=== PATIENT | female | born 1995 | race Caucasian/White ===

== ENCOUNTER 2019-07-01 13:02 | Emergency (ER) | payer OTHER ==
[~2019-07-01] VITALS: Ht 170.2 cm; Wt 113.4 kg
[2019-07-01] MEDS ORDERED: CELECOXIB200 MG PO (13:32)
[2019-07-01] MEDS ORDERED: METHOCARBAMOL500 MG PO (13:32)
[2019-07-01] MEDS ORDERED: LIDOCAINE15 GM (13:33)
[2019-07-01] MEDS ORDERED: ULTRAM50 MG PO (13:34)
[2019-07-01] MEDS ORDERED: NORCO 5-325 TA1 EACH PO (16:21)
[2019-07-01] MEDS ORDERED: CEFUROXIME250 MG PO (16:29)
== END 2019-07-01 17:35 | disposition home or self-care (01) ==
LOC: ED 13:02
DX: N80.9 Endometriosis, unspecified (principal); N39.0 Urinary tract infection, site not specified; Z88.0 Allergy status to penicillin; Z88.8 Allergy status to other drugs, medicaments and biological substances; Z79.899 Other long term (current) drug therapy
CPT/HCPCS: 76830; 76856; 80053; 81001; 84703; 85025; 99284-25; J0696; J1170; J2405

== ENCOUNTER 2019-07-19 05:42 | Day surgery (SDC) | payer OTHER ==
[~2019-07-19] VITALS: Ht 172.7 cm; Wt 113.4 kg
--- NOTE | ~2019-07-19 | OR ---
[facility] [address], [place] [address] Draft DATE OF OPERATION: 07/19/2019 SURGEON: Bessy Mosqueda DO PREOPERATIVE DIAGNOSES: 1. Chronic pelvic pain. 2. Endometriosis was determined by laparoscopy. 3. Complex right ovarian mass suspicious for endometrioma. 4. Dysmenorrhea. 5. History of left tubal occlusion. POSTOPERATIVE DIAGNOSES: 1. Chronic pelvic pain. 2. Right complex ovarian mass. 3. Dysmenorrhea. 4. Endometrial thickening. 5. Patent fallopian tubes bilaterally. 6. No evidence of residual endometriosis. PROCEDURES PERFORMED: 1. Laparoscopic right oophorectomy. 2. Hysteroscopy. 3. Dilation and curettage. 4. Chromopertubation. QUILLER HAND: Chalo Ortiz MD ANESTHESIA: General. ESTIMATED BLOOD LOSS: 50 mL. SPECIMEN: 1. Endometrial curettings. 2. Right ovary and cyst with cyst fluid. FINDINGS: Normal external genitalia, vagina, and cervix. On hysteroscopy, somewhat thickened PATIENT NAME: NANI ROSS OPERATIVE REPORT DATE OF : [birth year] REPORT #: [id number] PHYSICIAN: BESSY MOSQUEDA DO PCP: JULIANNE MARTINEZ MD REPORT IS CONFIDENTIAL AND NOT TO BE RELEASED WITHOUT AUTHORIZATION [facility] [address], [place] [address] Draft endometrium, but no polyps or fibroids. Normal tubal ostia bilaterally. On laparoscopy, normal uterus and bilateral tubes. Patent bilateral fallopian tubes noted on chromopertubation. Large right ovarian mass that was complex on ultrasound. Oophorectomy was performed and at time of removal of the ovary from the abdomen, straw-colored cyst fluid was noted. No evidence of residual endometriosis noted on detailed laparoscopy including sites previously documented in her operative in [place] including the right abdomen near the appendix. COMPLICATIONS: None. INDICATIONS: Ms. Ross is a pleasant 23-year-old G0 white female, who presents for evaluation of history of endometriosis and continued pelvic pain. She had laparoscopy performed several years ago in [place] that demonstrated somewhat extensive endometriosis including the pelvic peritoneum and near the appendix on the peritoneum. An ultrasound was performed that demonstrated a large complex right ovarian mass consistent with either resolving hemorrhagic cyst or endometrioma. Endometrial thickening was also noted on her ultrasound. At her prior surgery in [place], a right tubal ostia was noted on hysteroscopy and left tubal ostia was documented as absent. The right fallopian tube was patent on chromopertubation and the left fallopian tube was reportedly blocked. Decision was made to proceed with laparoscopic excision of endometriosis of present, possible right oophorectomy versus cystectomy, chromopertubation, and hysteroscopy, D and C. Risks, benefits, and alternatives were discussed in detail with the patient. The patient understands and wished to proceed with the procedure. TECHNIQUE: The patient was taken to the operating room. A time-out was performed to confirm correct patient, correct procedure. General anesthesia was adequately established. The patient was prepped and draped in dorsal lithotomy position with feet in Yellofin stirrups. ICPs were on and running and no preop heparin was indicated. The patient did receive 2 g of Ancef preoperatively. A Pop catheter was inserted and a weighted speculum was placed in the vagina and the anterior lip of the cervix was grasped with an Allis clamp. The cervix was gently dilated using Hegar dilators and operative hysteroscope was then placed into the cervical os and advanced under direct visualization into the uterine cavity. Normal uterine cavity with a somewhat thickened endometrium was noted. No polyps, fibroids, or other intrauterine pathology identified. Bilateral tubal ostia were identified. The hysteroscope was withdrawn and simple gentle curettage was performed with a sharp curette. An Riverlea uterine manipulator was then placed. The surgeon's gloves were changed. Attention was turned to the abdomen. The base of the umbilicus was infiltrated with 0.25% Marcaine with epinephrine. A 5 cm PATIENT NAME: NANI ROSS OPERATIVE REPORT DATE OF : [birth year] REPORT #: [id number] PHYSICIAN: BESSY MOSQUEDA DO PCP: JULIANNE MARTINEZ MD REPORT IS CONFIDENTIAL AND NOT TO BE RELEASED WITHOUT AUTHORIZATION [facility] [address] [place] [id number] Draft umbilical incision was made and the fascia was grasped with hemostats, elevated and incised sharply using Metzenbaum scissors. Some brisk bleeding from a subcu vessel was noted and this was made hemostatic with Bovie electrocautery. Stay sutures were applied to the anterior and posterior edges of the fascial incision and the peritoneum was entered bluntly. No intraabdominal adhesions were palpated in the marcy-incisional area and S-retractor was then placed. A Destiney port was placed and pneumoperitoneum established. Assist ports were placed in the left and right lower quadrant under direct visualization without difficulty. These were 5 mm assist ports. Survey of the abdomen and pelvis was performed that demonstrated normal liver and diaphragm. The peritoneum in the area of the appendix was evaluated in detail and no endometriosis was noted. Attention was then turned to the pelvis. Chromopertubation was performed that demonstrated easy bilateral spill from both fallopian tubes. The fallopian tubes appeared normal. Both with very small paratubal cysts, but were otherwise benign. The left ovary was completely normal. The right was enlarged and stretched across a cyst that was reportedly complex on pelvic ultrasound. Given the patient's multiple ER visits and severe symptoms, decision was made to proceed with right oophorectomy as previously discussed. The right infundibulopelvic ligament was evaluated and noted to be well away from the ureter. This was fulgurated and divided right at the entry to the ovary. The remainder of the ovarian attachment to the pelvic sidewall was fulgurated and divided and the ovary was freed. Again, the right fallopian tube appeared normal. A 5 EndoCatch bag was then placed through the umbilical incision and the ovary captured in the bag and brought to the umbilicus for removal. Contained in the bag. A 16-gauge needle was placed into the ovarian cyst and the cyst was aspirated for straw-colored cyst fluid and the ovary was then deflated and removed through the umbilical incision. Laparoscopy was then continued with detailed survey of the pelvic peritoneum that showed no residual endometriosis in the cul-de-sac, bilateral ovarian fossa, bladder, or other pelvic peritoneum. Pneumoperitoneum was then reduced. After insuring that the right infundibulopelvic ligament pedicle was hemostatic. The trocars were removed and periumbilical fascia was then reapproximated using 0 Vicryl in a running nonlocked manner. Subcu was again noted to be hemostatic. Skin was then reapproximated using 4-0 Vicryl in a subcuticular stitch. The Riverlea uterine manipulator removed. The patient was then taken to PACU in good and stable condition. Sponge, needle, instrument count was correct x2 at the end of the procedure. Dr. Ortiz was present and participated in all portions of the procedure. Bessy Mosqueda, DO PATIENT NAME: NANI ROSS OPERATIVE REPORT DATE OF : [birth year] REPORT #: [id number] PHYSICIAN: BESSY MOSQUEDA DO PCP: JULIANNE MARTINEZ MD REPORT IS CONFIDENTIAL AND NOT TO BE RELEASED WITHOUT AUTHORIZATION [address] [address] Draft JPAULA/NIDHIL /[id number] Copies: ~ PATIENT NAME: NANI ROSS OPERATIVE REPORT DATE OF : [birth year] REPORT #: [id number] PHYSICIAN: BESSY MOSQUEDA DO PCP: JULIANNE MARTINEZ MD REPORT IS CONFIDENTIAL AND NOT TO BE RELEASED WITHOUT AUTHORIZATION
[~2019-07-19 05:42] MED LIST: CEFUROXIME250 MG PO; CELECOXIB200 MG PO; LIDOCAINE15 GM; METHOCARBAMOL500 MG PO; NORCO 5-325 TA1 EACH PO; ULTRAM50 MG PO
--- NOTE | 2019-07-19 10:02 | NUR ---
07/19/19 Lizeth Hdz 0948-PT ARRIVES TO PACU ON 6 L VIA MASK. PT REACTIVE TO VERBAL STIMULUS. PT DENIES PAIN/NAUSEA. SURGICAL SITES WNL. FUNERAL HOME ATTENDANT AT BEDSIDE. VSS. SATS >90%. [id number]. PT REPORTS PAIN IN ABD AND SAYS SHE IS "SORE" PT ASKING FOR PAIN MEDICATION. DSICUSSED OXYGENA ND PAIN MEDICATION CRITERIA. PT AGREEABLE. VSS
--- NOTE | 2019-07-19 10:42 | NUR ---
PT ARRIVES TO DS RM 3 FROM PACU DROWSY, EASY TO AROUSE WITH VERBAL STIMULATION. PT RATES PAIN IN ABD 9/10 AND DESCRIBES IT A SORE, BURNING, ACHE. PT DENIES ANY NAUSEA, TOLERATES ICED WATER AND CRACKERS WELL. SCD'S IN PLACE, CALL LIGHT IN REACH.
--- NOTE | 2019-07-19 10:51 | NUR ---
NO ORDERS INPUT FOR PT, DR. MARTINEZ NOTIFIED. PT MOTHER IN ROOM AT THIS TIME.
--- NOTE | 2019-07-19 11:05 | NUR ---
PT RESTING IN BED, CONT TO C/O 10/10 PAIN IN ABD. PT PROVIDED MORE CRACKERS AND ICED WATER REFILLED. WARM BLANKET PROVIDED PER REQUEST. MOTHER AT BEDSIDE, CALL LIGHT IN REACH.
--- NOTE | 2019-07-19 12:18 | NUR ---
1215 C/O PAIN AT 9/10 BUT HEAD TIPPED BACK MOUTH OPEN EYES CLOSED RESP EVEN.DOESNT EXHIBIT ANY MOVEMENT FROWNING OR MOANING SUGGESTIVE OF THIS LEVEL OF PAIN. DR MARTINEZ HERE FOR UPDATE ON PT.
--- NOTE | 2019-07-19 14:02 | NUR ---
PT USES CALL LIGHT TO NOTIFY RN OF URGE TO VOID. PT SAT AT SIDE OF BED PRIOR TO STANDING, DENIES DIZZINESS OR NAUSEA. PT AMBULATES WITH RN ASSIST TO BATHROOM USING HANDRAIL ALONG HALLWAY, STEADY GAIT. PT PROVIDED NEW PERIPAD DUE TO PERIPAD FALLING ON FLOOR. PT UNABLE TO VOID AT THIS TIME, RED BLOOD PRESENT. PT BACK TO RM, SCD'S IN PLACE. PT MOTHER AT BEDSIDE, CALL LIGHT WITHIN REACH. LUNCH ORDERED FOR PT, CRACKERS PROVIDED AND ICED WATER FILLED. WARM BLANKETS PROVIDED.
--- NOTE | 2019-07-19 14:39 | NUR ---
PT LUNCH DELIVERED FROM DIETARY. PT RESTING IN BED WITH EVEN AND UNLABORED RESP, SITTING UPRIGHT EATING LUNCH. PT APPEARS COMFORTABLE. CALL LIGHT WITHIN REACH.
[2019-07-19] MEDS ORDERED: IBUPROFEN800 MG PO (15:01)
[2019-07-19] MEDS ORDERED: PERCOCET 5-3251 EACH PO (15:01)
--- NOTE | 2019-07-19 15:27 | NUR ---
PT UP TO BATHROOM WITH RN ASSIST, STEADY GAIT. PT UNABLE TO VOID AT THIS TIME. PT BACK TO RM, RATES PAIN IN ABD; MEDICATED PER EMAR. SCD'S IN PLACE, ICED WATER REFILLED.
--- NOTE | 2019-07-19 15:40 | NUR ---
PT BLADDER SCANNED OF APPROX [address] MARTINEZ NOTIFIED, VERBAL ORDERS TO PLACE NAVARRO CATHETER AND TO KEEP PT OVERNIGHT FOR EXTENDED OBSERVATION. THIS RN PLACES NAVARRO CATHETER WITH ASSIST OF 2 OTHER RNS. UROJET USED FOR PT COMFORT. APPROX 9 MLS STERILE WATER INSERTED IN NAVARRO CATHETER BALLOON. PT TOLERATES NAVARRO PLACEMENT WITH MINIMAL PAIN. 1000 MLS YELLOW URINE EMPTIED FROM PT BLADDER.
--- NOTE | 2019-07-19 17:19 | NUR ---
PT RESTING IN BED WITH MOTHER AT BEDSIDE. PT RATES PAIN 6/10 IN ABD AND TOLERABLE. PT ICED WATER REFILLED, TOLERATES PO WELL. PLAN TO TRANSFER PT TO MS RM 116.
--- NOTE | 2019-07-19 17:47 | NUR ---
1740: PT TRANSFERRED TO RM 116 VIA STRETCHER. PT ABLE TO TRANSFER SELF FROM STRETCHER TO BED. MOTHER, LEIGH ANN FOLLOWS TO PT RM. VERBAL REPORT GIVEN TO MARCELO LIM.
--- NOTE | 2019-07-19 17:52 | NUR ---
PATIENT ARRIVED FROM DAY SURGERY, REPORT RECIEVED FROM RN. PATIENT MOVED SELF OVER TO BED FROM [facility]. MESH UNDERWEAR AND PERIPAD IN PLACE. NAVARRO CATHETER INTACT AND DRAINING CLEAR YELLOW URINE. PATIENT RATES ABD PAIN 6/10 AND THAT IS THE BEST ITS BEEN SINCE SURGERY. X3 ABD SCOPE SITES INTACT AND COVERED WITH BANDAIDS, LEFT ABD SITE HAS OLD DRAINAGE. PATIENT IS EATING CRACKERS, JELLO, SIPS OF WATER. WARM BLANKETS PROVIDED.
--- NOTE | 2019-07-19 18:39 | NUR ---
PATIENT GIVEN ONE PERCOCET FOR 8/10 ABD PAIN. PATIENT IS TOLERATING PO INTAKE.
--- NOTE | 2019-07-19 20:33 | NUR ---
awake, on room air. c/o 11/29 abd pain medicated with 1 norco po. coop with assessment. vag pack inplace, f/c patent, draining large amounts of clear yellow urine
--- NOTE | 2019-07-19 21:08 | NUR ---
PT GOT MYLICON, THEN SHE STATED THAT SHE HAD MINT ALLERGIES, MYLICON INFORMATION DOWNLOADED, STATED INACTIVE MINT FLAVORING. C/O SOB. ON ROOM AIR, SATS 97% ID PULSE OX. RESP 16, P70. NO RASH OR OTHER SIMPTOMS NOTED. DR MARTINEZ NOTIFIED VIA PHONE. NEW ORDERES RECEIVED TO DC MYLICON AND NEW ORDERS FOR BENADRYL 25MG PO OBTAINED.
--- NOTE | 2019-07-19 21:18 | NUR ---
medicated with benadryl
--- NOTE | 2019-07-20 04:06 | NUR ---
PT WAS SLEEPING SOUNDLY, ON ROOM AIR, AWAKES EASILY, NO FURTHER C/O FEELING SOB OR PAIN AT THIS TIME. VAGINAL PACK STILL IN PLACE, VERY SCANT AMOUNT OF BROWNINGSH AND PINKSISH COLORED VAG DRAINAGE. F/C PATENT.TOLERATING FLUIDS WELL, CALL LIGHT AT BEDSIDE, SCDS IN PLACE, NO C/O N/V
--- NOTE | 2019-07-20 05:50 | NUR ---
Walked with pt one lap, provided pt with warm blanket.
--- NOTE | 2019-07-20 06:06 | NUR ---
PT CURRENTLY WALKING HALLWAYS, UP AND DOWN, TOLERATED WELL. BACKA TO ROOM. SBA. ON ROOM AIR, RECEIVED SCHEDULED MOTRIN PO PER 11/29 ABD/VAGINAL PAIN. VAGINAL PACK STILL IN PLACE, SCANT AMOUNT OF VAGINAL DISCHARGE PRESENT. F/C PATENT, DRAINING DARK YELLOW URINE. hAS BEEN MEDICATED WITH nORCO X1. pT PT C/O MINT ALLERGY THANT SHE FORGOT NOTNOTIFY MD OR HOSP PERSONNEL AFTER TAKING MYLICON, DR MARTINEZ NOTIFIED, PT RECEIVED BENADRYL, NO C/O ITCHING OR OTHER SIDE EFFECTS. NO N/V. ALERT AND ORIENTED
--- NOTE | 2019-07-20 08:47 | NUR ---
DR MARTINEZ CAME BY NURSES STATION. VERBAL ORDERS GIVEN: PULL NAVARRO, BOLUS X1 WITH LR OVER 1 HR. VOIDING TRIAL Q2 WITH PVR. CALL DR MARTINEZ WITH NUMBERS.
--- NOTE | 2019-07-20 09:10 | NUR ---
NAVARRO REMOVED, 325 ML CHARTED. IV BOLUS INFUSING AT 750 PER PT REQUEST. EDUCATED PT ON PLAN OF CARE, VOID WITHIN 2HRS WITH PVR. CALL DR MARTINEZ WITH PVR NUMBERS.
--- NOTE | 2019-07-20 10:38 | NUR ---
PT IS WALKING IN HALLS WITH HER MOTHER. PT APPEARS TO BE TOLERATING WELL. PT HAS ATTEMPTED TO VOID, BUT HAS BEEN UNABLE TO VOID.
--- NOTE | 2019-07-20 12:29 | NUR ---
Called Dr Mosqueda with update. Pt has not voided. Verbal order to give 1L LR at 150ml/hr.
--- NOTE | 2019-07-20 13:30 | NUR ---
Spoke with Melchor. She lives in [place]. Denies any needs for dc. States she is waiting to void and will discharge her. Denies use of DME. Mom with transport her home. Pt would like to shower and nurse notified. Pt plans on dc to home, post voiding.
--- NOTE | 2019-07-20 14:03 | NUR ---
PT UP TO ATTEMPT TO VOID. UNABLE TO VOID BUT "FEEL LIKE IM GETTING CLOSER". WILL RESCAN AT 1500.
--- NOTE | 2019-07-20 16:27 | NUR ---
ATTEMPTED TO PLACE NAVARRO PER MD ORDER. SUPPLIES SET UP IN STERILE FASHION. PROCEDURE EXPLAINED TO PT AND HER MOTHER PRIOR TO STARTING. MADDI Lucas ASSISTED BY CLEANING AREA WITH WARM WASHCLOTH AND WATER. PT STARTED SCREAMING AT THE FIRST TOUCH OF THE WASHCLOTH. RN ASKED PT IF SHE WANTED HER MOTHER TO COME OVER TO HOLD HER HAND, SHE AGREED. MOTHER CAME OVER TO HOLD HER HAND. MADDI Lucas FINISHED LIZBET-CARE WITH WASHCLOTH. RN USED IODINE SWABS X3 TO CLEAN THE AREA, PT CONTINUED TO SCREAM LOUD ENOUGH TO CAUSE NURSES FROM THE NURSES STATION TO COME DOWN TO THE ROOM. RN CALMY RE-EXPLAINED THE PROCEDURE AND ATTEMPTED TO INSERT THE NAVARRO. PT SHRIEKED AND SCREAMED. RN EXPLAINED THAT SCREAMING WILL CAUSE MUSCLE CONTRACTIONS AND PREVENT THE NAVARRO TO BE PLACED. PT'S MOTHER BECAME IRRITATED AND TOLD THIS RN "SHE WILL SCREAM IF SHE NEEDS TO." RN PAUSED TO ALLOW PT TO TRY AND RELAX. PT ATTEMPTED TO RELAX AND HAND PRESSER THE CATHETER. PT'S MOM CONTINUED TO TELL THE RN "THERE MUST BE ANOTHER OPTION" AND "SHE CAN SCREAM". AFTER SEVERAL ATTEMPTS OF PAUSING TO HAVE PT RELAX, RN TOLD PT AND HER MOTHER THAT I COULD HAVE THE PHOTOGRAPH MOUNTER TRY IF THAT WOULD MAKE THEM FEEL BETTER. MOTHER STATED "DO THAT". RN CLEANED UP SUPPLES, REMOVED STERILE GLOVES, WASHED HANDS, AND LEFT THE ROOM. ADVISED PHOTOGRAPH MOUNTER OF THE SITUATION. CURING PICKLING PACKER WAS IN THE NURSES STATION AND WAS ADVISED. CHARGE NURSE AND ANOTHER RN WENT IN TO PLACE NAVARRO.
--- NOTE | 2019-07-20 17:32 | NUR ---
PATIENT DISCHARGE INSTRUCTIONS DONE. PATIENT GIVEN WHEELCHAIR RIDE TO FRONT.
--- NOTE | 2019-07-24 13:49 | PATH ---
[facility] [address] [place], [place] [address] Signed THIS IS AN ADDENDUM REPORT SPECIMEN(S): A ENDOMETRIAL CURETTINGS SPECIMEN(S): B RIGHT OVARY SPECIMEN SOURCE: A. ENDOMETRIAL CURETTINGS CLINICAL HISTORY: Endometriosis, dysmenorrhea, right ovarian mass. FINAL PATHOLOGIC DIAGNOSIS: Endometrium, curettage: - Proliferative endometrium. - Endocervical glandular mucosa with no histopathologic abnormality. - Negative for hyperplasia or malignancy. NAL:cml:C2NR MICROSCOPIC EXAMINATION: Histologic sections of all submitted blocks are examined by light microscopy. These findings, together with the gross examination, support the pathologic diagnosis. GROSS DESCRIPTION: The specimen, labeled "KISHA, endometrial curettings," is received in formalin and consists of mucus and clot material, measuring 2.3 x 1.0 x 0.2 cm. The specimen is filtered and entirely submitted in cassette (A1). AT (under the direct supervision of a pathologist) The Gross Description was prepared using a voice recognition system. The report was reviewed for accuracy; however, sound-alike word errors, addition and/or deletions may occur. If there is any question about this report, please contact Client Services. PERFORMING LABORATORY: The technical component was performed by [facility], [address] [place] [id number] (Asset Card Clerk: Luba Vazquez MD; CLIA# [id number]). [facility], [address] [address] (CLIA# [id number]). PATIENT NAME: NANI LOAIZA PATHOLOGY DATE OF : [birth year] REPORT #: [id number] PHYSICIAN: ADARSHNewsPin PATHOLOGY PCP: JULIANNE MARTINEZ MD REPORT IS CONFIDENTIAL AND NOT TO BE RELEASED WITHOUT AUTHORIZATION [facility] [address] [place] [address] Signed REASON FOR ADDENDUM: To add specimen B. ADDENDUM PATHOLOGIC DIAGNOSIS: B. Ovary, right, oophorectomy: - Ovary with cystic follicles and hemorrhagic corpus luteum cyst(s). ADDENDUM COMMENT: Please correlate with concurrent cytology specimen (VN-20-07, 07/19/2019). NAL:cl ADDENDUM GROSS DESCRIPTION: B. Received in CytoLyt and subsequently placed in formalin after Cytology took fluid, labeled "Cody, [place], right ovary," consists of a 7.5 x 5.2 x 2.1 cm, anaya-pink ovary. It is sectioned to reveal a deflated, 3.2 cm cyst within a anaya, smooth ovarian parenchyma. The cyst wall averages 0.2 cm with no areas of thickening or papillary excrescences identified. Rope Cutter sections are submitted in (B1-B2). tn:MZ:na The technical component was performed by [facility], [address] [place], [place] [address], [place] [address] (Asset Card Clerk: Berry Kirkpatrick D.O.; CLIA#: [id number]). [facility], [address] [address] (CLIA# [id number]). Diagnostician: Laney Krueger MD Pathologist Electronically Signed 07/24/2019 Copies: ~ PATIENT NAME: CODYNANIGALDINO [facility] PATHOLOGY DATE OF : [birth year] REPORT #: [id number] PHYSICIAN: CARLOS PATHOLOGY PCP: JULIANNE MARTINEZ MD REPORT IS CONFIDENTIAL AND NOT TO BE RELEASED WITHOUT AUTHORIZATION
== END 2019-07-20 17:30 | disposition home or self-care (01) ==
LOC: DS 05:42 → OPS 05:42 → DS 06:45 → OPS 06:45 → MS 16:30 → OPS 07-20 17:30
PROVIDERS: Obstetrics & Gynecology
PROC: 0UT04ZZ Resection of Right Ovary, Percutaneous Endoscopic Approach (ICD-10-PCS; principal; 2019-07-19 06:45)
PROC: 0UDB8ZX Extraction of Endometrium, Via Natural or Artificial Opening Endoscopic, Diagnostic (ICD-10-PCS; 2019-07-19 06:45)
PROC: 3E0 Administration, Physiological Systems and Anatomical Regions, Introduction (ICD-10-PCS; 2019-07-19 06:45)
DX: N83.8 Other noninflammatory disorders of ovary, fallopian tube and broad ligament (principal); N97.1 Female infertility of tubal origin; Z79.899 Other long term (current) drug therapy; Z88.1 Allergy status to other antibiotic agents
CPT/HCPCS: 00952; 51702; 51798; J0690; J1100; J1885; J2250; J2270; J2405; J2704; J3010; J7121; Q9968

== ENCOUNTER 2019-11-10 08:06 | Emergency (ER) | payer OTHER ==
[~2019-11-10] VITALS: Ht 172.7 cm; Wt 113.4 kg
[~2019-11-10 08:06] MED LIST changes: +IBUPROFEN800 MG PO; +PERCOCET 5-3251 EACH PO
[2019-11-10] MEDS ORDERED: NORCO 5-325 TA1 EACH PO (11:47)
[2019-11-10] MEDS ORDERED: IBUPROFEN800 MG PO (11:47)
== END 2019-11-10 12:11 | disposition home or self-care (01) ==
LOC: ED 08:06
DX: N92.0 Excessive and frequent menstruation with regular cycle (principal); Z91.018 Allergy to other foods; Z88.0 Allergy status to penicillin; Z88.8 Allergy status to other drugs, medicaments and biological substances; Z79.899 Other long term (current) drug therapy
CPT/HCPCS: 76830; 76856; 80048; 81001; 84703; 85025; 87210; 96361; 96374; 96375; 99284-25; J1885; J3010; J7030

== ENCOUNTER 2021-08-11 07:25 | Emergency (ER) | payer OTHER ==
[~2021-08-11] VITALS: Ht 172.7 cm; Wt 86.2 kg
--- OUTSIDE RECORDS SUMMARY | 2021-08-11 07:28 | XMS ---
PreManage Notification: NANI LOAIZA Security Car Rental Manager Events No recent Security Events currently on file CRITERIA MET - CHARLIE CARE PROVIDERS [facility] Current PHONE: [phone] JEIMY HEBERTTRafat Gynecology Current PHONE: Unknown [facility] Current PHONE: Unknown Padmaja has no Care Guidelines for this patient. E.D. VISIT COUNT (12 MO.) [address] [facility] TOTAL 1 NOTE: Visits indicate total known visits. ED/UCC VISIT TRACKING (12 MO.) 08/11/2021 07:[address] [facility] [address] [place] TYPE: Emergency COMPLAINT: - ABDOMINAL PAIN, NAUSEA, FEVER, CHILLS, SWEATS INPATIENT VISIT TRACKING (12 MO.) No inpatient visits to display in this time frame [id number]
[2021-08-11] MEDS ORDERED: GABAPENTIN600 MG PO (07:40)
[2021-08-11] MEDS ORDERED: AMITRIPTYLINE H25 MG PO (07:40)
[2021-08-11] MEDS ORDERED: CARBAMAZEPINE200 MG PO (07:42)
[2021-08-11] MEDS ORDERED: ONDANSETRON ODT4 MG SL (10:39)
[2021-08-11] MEDS ORDERED: HYDROCODON-ACE1 EAC8 PO (10:39)
== END 2021-08-11 11:52 | disposition home or self-care (01) ==
LOC: ED 07:25
DX: N83.202 Unspecified ovarian cyst, left side (principal); R33.9 Retention of urine, unspecified; Z88.0 Allergy status to penicillin; Z88.8 Allergy status to other drugs, medicaments and biological substances; Z91.018 Allergy to other foods; Z79.899 Other long term (current) drug therapy; Z20.822 Contact with and (suspected) exposure to COVID-19
CPT/HCPCS: 36415; 51702; 74177; 76830; 76856; 80053; 81001; 83690; 84703; 85025; 99284-25; C9803; J1170; J2405; J7030; Q9967; U0003

== ENCOUNTER 2021-09-24 10:21 | Emergency (ER) | payer OTHER ==
[~2021-09-24] VITALS: Ht 172.7 cm; Wt 89.0 kg
[~2021-09-24 10:21] MED LIST changes: +AMITRIPTYLINE H25 MG PO; +CARBAMAZEPINE200 MG PO; +GABAPENTIN600 MG PO; +HYDROCODON-ACE1 EAC8 PO; +ONDANSETRON ODT4 MG SL
--- OUTSIDE RECORDS SUMMARY | 2021-09-24 10:25 | XMS ---
PreManage Notification: NANI LOAIZA Security Appeals Analyst Events No recent Security Events currently on file CRITERIA MET - CHARLIE CARE PROVIDERS JUAN [facility] Current PHONE: [phone] JEIMY HEBERTTRafat Gynecology Current PHONE: Unknown [facility] Current PHONE: Unknown Padmaja has no Care Guidelines for this patient. E.D. VISIT COUNT (12 MO.) [address] [facility] [facility] TOTAL 2 NOTE: Visits indicate total known visits. ED/UCC VISIT TRACKING (12 MO.) 09/24/2021 10:22 [facility] [place] TYPE: Emergency COMPLAINT: - PELVIC PAIN 08/11/2021 07:26 [facility] [place] TYPE: Emergency COMPLAINT: - ABDOMINAL PAIN, NAUSEA, FEVER, CHILLS, SWEATS DIAGNOSES: - Allergy status to other drugs, medicaments and biological substances - Right lower quadrant pain - Contact with and (suspected) exposure to COVID-19 - Other rodent exterminator (current) drug therapy - Retention of urine, unspecified - Allergy status to penicillin - Allergy to other foods - Unspecified ovarian cyst, left side INPATIENT VISIT TRACKING (12 MO.) No inpatient visits to display in this time frame [id number]
[2021-09-24] MEDS ORDERED: HYDROCODON-ACE1 EA10 PO (17:00)
== END 2021-09-24 17:15 | disposition home or self-care (01) ==
LOC: ED 10:21
DX: R10.31 Right lower quadrant pain (principal); Z88.0 Allergy status to penicillin; Z88.8 Allergy status to other drugs, medicaments and biological substances; Z79.899 Other long term (current) drug therapy
CPT/HCPCS: 36415; 51798; 74177; 80053; 81001; 84703; 85025; 99284-25; J1885; J7030; Q9967

== ENCOUNTER 2021-09-30 06:00 | Day surgery (SDC) | payer OTHER ==
--- NOTE | ~2021-09-30 | OR ---
[facility] [address], [place] [address] Draft DATE OF OPERATION: 09/30/2021 SURGEON: Melody Mohan MD PREOPERATIVE DIAGNOSIS: Pelvic and abdominal pain, history of endometriosis. POSTOPERATIVE DIAGNOSIS: Pelvic and abdominal pain, history of endometriosis. PROCEDURE: Laparoscopy with laser fulguration of endometriosis, removal of left ovarian cyst, probable corpus luteum and removal of left paratubal cyst. ANESTHESIA: General ET. ESTIMATED BLOOD LOSS: 35 mL. DRAINS: None. INDICATIONS AND FINDINGS: The patient is a 26-year-old female who has a history of endometriosis, who has been developing worsening pelvic pain. Over the last two weeks her pain is significantly escalated requiring two visits to the emergency room and two CTs, which were all negative including her evaluation. At the time of surgery, exam under anesthesia was normal. At the time of laparoscopy, she did have endometriosis of the right uterosacral ligament. The right infundibulopelvic ligament very superficially. The left posterior ovarian fossa and over the surface of the left ovary. There was a left paratubal cyst as well. She did have a corpus luteum on the left underlying the endometriosis. Because of bleeding, this corpus luteum was removed. She also underwent a Pap smear during her procedure. PROCEDURE IN DETAIL: The patient was prepped and draped in the dorsal lithotomy position. A Pap smear was done prior to prep and specimen sent off. After the prep was done, the cervix was visualized with the open-sided speculum. The anterior lip was grasped with a single-tooth tenaculum. The Hulka clamp was then placed. Following this, attention was PATIENT NAME: NANI LOAIZA OPERATIVE REPORT DATE OF : [birth year] REPORT #: [id number] PHYSICIAN: MELODY MOHAN MD PCP: JULIANNE COOK MD REPORT IS CONFIDENTIAL AND NOT TO BE RELEASED WITHOUT AUTHORIZATION [facility] [address], [place] [address] Draft directed above. The infraumbilical area was injected with 0.5% Marcaine plain. An incision was made with a knife. Each layer was then serially elevated and incised until the fascia was opened and identified. The peritoneum was opened bluntly. The Destiney cannula was placed and tied into place. CO2 was then introduced into the abdomen. When the abdomen was appropriately distended, the pelvis was visualized and the procedure appeared appropriate on initial view. A secondary port was placed on the patient's left side. This area was transilluminated, injected with the Marcaine, incision made with a knife and the trocar placed under direct vision. Further evaluation was done and given the location and extent of the endometriosis it was felt that the laser was appropriate. Because of this, a third puncture site was made. This was on the right side slightly below the level of the umbilicus. This area was transilluminated, injected with the Marcaine, incision made with a knife and again placed under direct vision. The CO2 laser fiber was then introduced and a SuperPulse with a power of 8 was used and the endometriosis on the patient's right uterosacral ligament was completely fulgurated. There was a small area on the right infundibulopelvic ligament and this was treated very superficially. There was a small area behind the left ovary and this was treated as well. There were also several spots on the left ovary and these were treated as well. During this time, when one of the areas of the endometriosis was treated. This was directly over her ovarian cyst, which was quite small. This did lead to bleeding and because of this, the ovarian cyst was removed. It was an apparent corpus luteum. The base of the ovary was treated with cautery for hemostasis. There was also a left paratubal cyst and this was excised as well. The connection was treated with monopolar cautery and divided and specimen retrieved. The abdomen was then copiously irrigated and inspected and bleeding points on the patient's left ovary was again treated to assure hemostasis. Because of the raw area, a Tisseel was also sprayed over this area to assure hemostasis. The patient's right ovary had been previously removed because of a benign cyst. Following this, it appeared that all areas had been treated and the procedure was terminated. The instruments removed from the abdomen after allowing as much CO2 as possible to escape. The fascial incision was re-identified and closed with a running suture of 0 Vicryl. The skin incisions were closed with subcuticular sutures of 3-0 Vicryl Rapide. Attention was directed down below and the instruments removed. There was no evidence of any bleeding from the cervix. All sponge and needle counts were correct. She tolerated the procedure well and was taken to the recovery room in good condition. Melody Mohan MD PJW/MODL PATIENT NAME: NANI LOAIZA OPERATIVE REPORT DATE OF : [birth year] REPORT #: [id number] PHYSICIAN: MELODY MOHAN MD PCP: JULIANNE COOK MD REPORT IS CONFIDENTIAL AND NOT TO BE RELEASED WITHOUT AUTHORIZATION [facility] [address] [place], [place] [address] Draft /[id number] cc: Julianne Cook MD Copies: JULIANNE COOK DMD ~ PATIENT NAME: NANI LOAIZA OPERATIVE REPORT DATE OF : [birth year] REPORT #: [id number] PHYSICIAN: MELODY MOHAN MD PCP: JULIANNE COOK MD REPORT IS CONFIDENTIAL AND NOT TO BE RELEASED WITHOUT AUTHORIZATION
[~2021-09-30 06:00] MED LIST changes: +HYDROCODON-ACE1 EA10 PO
--- NOTE | 2021-09-30 08:08 | NUR ---
PT ASLEEP, SUPPORTED BY HER MOTHER IN . MOTHER WILL REMAIN, ENCOURAGEMENT GIVEN. WILL FOLLOW NEEDED
--- NOTE | 2021-09-30 10:16 | NUR ---
09/30/21 Angelica Mendoza 1004-PT TO PACU IN SUPINE POSITION. EYES CLOSED WITH ORAL AIRWAY IN PLACE. BREATHING EASY AND UNLABORED. PT DOES NOT RESPOND TO VERBAL OR TACTILE STIMULI. SPO2 >95% ON 6 L O2 VIA SIMPLE MASK. 1011- PT TONGUED OUT AIRWAY. DOES NOT FOLLOW COMMANDS. BREATHING EASY AND UNLABORED. SPO2 95% ON 6 L O2 VIA SIMPLE MASK. 1015- PT OPENS EYES TO VERBAL STIMULI. SHAKES HEAD NO WHEN ASKED ABOUT PAIN AND GROANS INTERMITTANTLY. BREATHING EASY AND UNLABORED. SPO2 >95% ON 6 L O2 VIA SIMPLE MASK.
--- NOTE | 2021-09-30 11:04 | NUR ---
1055: PT ARRIVES TO UNIT VIA STRETCHER FROM PACU. AWAKE AND ALERT ON ARRIVAL. VSS, RESP EVEN AND UNLABORED. LAP SITES X3 WITH SMALL AMOUNT OF RED SHAWDOWING. DENIES NAUSEA AT THIS TIME. REPORTING INCREASING PAIN LEVEL, /10. ENCD TO EAT A CRACKER AND HAVE SOME SIPS OF WATER PRIOR TO PAIN RX. VOICES UNDERSTANDING. POC DISCUSSED AND PT AGREEABLE. NO NEEDS, CALL LIGHT WITHIN REACH
--- NOTE | 2021-09-30 11:13 | NUR ---
1110: PT RAVINDER PO INTAKE WELL. CONTS TO DENY NAUSEA. PAIN RX ADMINISTERED ORDERED, SEE PT EMAR. WARM BLANKET PROVIDED. NO FURTHER NEEDS AT THIS TIME. CALL LIGHT WITHIN REACH
--- NOTE | 2021-09-30 11:59 | NUR ---
1140: PT WITH CALL FOR THIS RN. REPORTS GAS PAIN AND REQUESTS TO USE BR. DANGLED AT THE BEDSIDE, RAVINDER WELL DENIES DIZZINES. BEGINS TO EXPERIENCE DIZZINESS WITH THIS RN STANDBY ASSIST DURING AMBULATION. BACK TO TO STRETCHER AND BEDSIDE COMMODE PROVIDED. PT SUCCESSFUL PASSES GAS BUT IS UNABLE TO VOID AT THIS TIME. ASSISTED BACK INTO BED 1150: PT CONTS TO REPORT PAIN LEVEL 7/10. ADDITIONAL RX ADMINISTERED ORDERED, SEE PT EMAR. VSS, RESP EVEN AND UNLABORED. FRESH ICE WATER PROVIDED. NO CHANGE TO LAP SITES X3. CALL LIGHT WITHIN REACH
--- NOTE | 2021-09-30 12:58 | NUR ---
requested to sit on bsc. unable to void. denies dizziness. to stretcher and bladder scanned for 968mls. states she feels uncomfortable.
--- NOTE | 2021-09-30 13:28 | NUR ---
1255: AFTER SITTING ON BEDSIDE COMMODE, PT UP TO BR WITH STANDBY ASSIST FROM THIS RN. RAVINDER WELL, DENIES DIZZINESS AND SOB. CONTD INABILITY TO VOID AT THIS TIME. REPORTS BLADDER TENDERNESS AND BLADDER PALPABLE. TC PLACED TO MD SVITLANA AND ORDER RECEIVED TO STRAIGHT CATH. VSS, RESP EVEN AND UNLABORED. STRAIGHT CATHED FOR 1050ML CLEAR DILUTE URINE. REPORTS RAVINDER PAIN LEVEL, 2/10. DENIES NAUSEA. ORDER PLACED FOR REG LUNCH. NO FURTHER NEEDS VOICED AT THIS TIME. CALL LIGHT WITHIN REACH
--- NOTE | 2021-09-30 14:11 | NUR ---
1400: PT WATCHES TV COMFORTABLY IN STRETCHER. REG LUNCH TRAY REMOVED. VSS, RESP EVEN AND UNLABORED. NO CHANGE TO LAP SITES X3. ICE WATER REFILLED. CONTS TO REPORT RAVINDER PAIN LEVEL, 2/10 AND DENY NAUSEA. NO NEEDS, CALL LIGHT WITHIN REACH
--- NOTE | 2021-09-30 15:11 | NUR ---
1430: PT WITH CALL FOR THIS. REPORTS FEELING BLADDER FULLNESS AGAIN AND WISHES TO GET UP TO BR. AMBULATES INDEPENDENTLY, STEADY GAIT. CONTS TO REMAIN UNABLE TO VOID AT THIS TIME. BLADDER SCANNED FOR 999+MLS URINE. TC PLACED TO MD SVITLANA AND ORDER RECEIVED TO PLACE NAVARRO CATH AND DC WITH [facility]O CATH IN PLACE PT HAS HX OF INABILITY TO VOID AFTER RECEIVING GENERAL ANESTHESIA IN PAST. PT TO RETURN TO OFFICE AT 0900 TOMORROW FOR VOIDING TRIAL. [facility]O CATH PLACED AND DRAINED FOR 1400MLS CLEAR DILUTE URINE. PT DRESSES INDEPDNENTLY FOR DC 1450: SL DC'D WITH CATH TIP INTACT AND PRESSURE APPLIED TO SITE, WNL. DC INSTRUCTIONS PROVIDED AND DISCUSSED ORDERED. PT VOICES UNDERSTANDING AND DENIES QUESTIONS AND CONCERNS AT THIS TIME. WHEELED OFF OF UNIT IN WC BY THIS RN. TRANSFERS INTO VEHICLE INDEPENDENTLY AND APPROPRIATELY. NO PHYSICAL S/S OF DISTRESS AT THIS TIME
--- NOTE | 2021-10-01 10:56 | PATH ---
[facility] [address] [place], [place] [address] Signed ORDERING PHYSICIAN: Melody Mohan MD PATIENT NAME: NANI LOAIZA MAULIK GENDER: F : 1995 Prior History: DATE CASE NUM ADEQUACY DIAGNOSIS HPV RESULTS PHYSICIAN The 5 most recent reports are included. This history does not include results of pap smears performed at another laboratory. SPECIMEN(S): No Source Given CLINICAL HISTORY: Routine Pap Smear CYTOLOGIC INTERPRETATION: Negative for intraepithelial lesion or malignancy. MOLECULAR PATHOLOGY RESULTS: HPV High Risk - Negative TECHNICAL NOTES: To improve disease detection, this slide is screened using automated intelligence technology. This specimen was received in a vial of liquid-based fixative and was processed using thin layer Pap technology. SPECIMEN ADEQUACY: Satisfactory for evaluation. Endocervical and/or metaplastic cells present. Severe inflammation present. ADDITIONAL NOTES: The Pap smear is a screening test designed to aid in the detection of premalignant and malignant conditions of the uterine cervix. It is not a diagnostic procedure and should not be used as the sole means of detecting cervical cancer. Both false-positive and false-negative reports do occur. ADDITIONAL NOTES.: The Pharminex Aptima HPV assay is a nucleic acid amplification test for the qualitative detection of E6/E7 viral messenger RNA (mRNA) from HPV types 16, 18, 31, 33, 35, 39, 45, 51, 52, 56, 58, 59, 66, PATIENT NAME: NANI LOAIZA MAULIK PATHOLOGY DATE OF : [birth year] REPORT #: [id number] PHYSICIAN: CARLOS PATHOLOGY PCP: JULIANNE MARTINEZ MD REPORT IS CONFIDENTIAL AND NOT TO BE RELEASED WITHOUT AUTHORIZATION [facility] [address] [place], [place] [address] Signed and 68. Refer to the test directory for assay limitations. ThinPrep Pap collections are FDA-approved. SurePath Pap collections are not FDA-approved but performance characteristics were determined at the performing laboratory. [facility] is certified under CLIA as qualified to perform high complexity testing. PERFORMING LABORATORY: Technical preparation was performed by [facility], [address] [place] [address] (CLIA#: [id number]). PERFORMING LABORATORY.: Molecular testing was performed by [facility], [address] [facility] [address] [address], , CLIA #: [id number]. Diagnostician: Philipp RENTERIA([facility]) Project Systems Engineer Electronically Signed 10/01/2021 Copies: ~ PATIENT NAME: NANI LOAIZA PATHOLOGY DATE OF : [birth year] REPORT #: [id number] PHYSICIAN: CARLOS PATHOLOGY PCP: JULIANNE MARTINEZ MD REPORT IS CONFIDENTIAL AND NOT TO BE RELEASED WITHOUT AUTHORIZATION
--- NOTE | 2021-10-01 11:10 | PATH ---
[facility] [address] [facility] [place], [place] [address] Signed SPECIMEN(S): A LEFT OVARIAN CYST SPECIMEN(S): B LEFT PARATUBAL CYST SPECIMEN SOURCE: A. LEFT OVARIAN CYST B. LEFT PARATUBAL CYST CLINICAL HISTORY: History of endometriosis, pelvic pain. Laparoscopy with laser. FINAL PATHOLOGIC DIAGNOSIS: A. Cyst, left ovary, excision: - Fragments of hemorrhagic corpus luteum cyst. B. Paratubal cyst, left, excision: - Fragments of hemorrhagic corpus luteum cyst. - Ovary parenchyma present. NAL:cml:C2NR MICROSCOPIC EXAMINATION: Histologic sections of all submitted blocks are examined by light microscopy. These findings, together with the gross examination, support the pathologic diagnosis. GROSS DESCRIPTION: Two specimens are received in two containers, labeled "KISHA." A. The specimen, labeled "KISHA, left ovarian cyst," is received in formalin and consists of several pieces of anaya, fibromembranous tissue that aggregate measure 2.8 x 1.7 x 0.4 cm. Perinatal Nurse sections are submitted in cassette (A1). B. The specimen, labeled "KISHA, left paratubal cyst," is received in formalin and consists of irregular shaped, pink-anaya, membranous tissue fragment that measures 2.0 x 1.1 x 0.4 cm. Specimen is entirely submitted in cassette (B1). LEXUS (under the direct supervision of a pathologist) The Gross Description was prepared using a voice recognition system. The report was reviewed for accuracy; however, sound-alike word errors, addition and/or deletions may occur. If there is any question about this report, please contact Client Services. PERFORMING LABORATORY: The technical component was performed by [facility], [place], PATIENT NAME: NANI LOAIZA PATHOLOGY DATE OF : [birth year] REPORT #: [id number] PHYSICIAN: CARLOS PATHOLOGY PCP: JULIANNE MARTINEZ MD REPORT IS CONFIDENTIAL AND NOT TO BE RELEASED WITHOUT AUTHORIZATION [facility] [address] [place], [place] [address] [place] [address] (CLIA# [id number]). Professional interpretation was performed by [facility], [address] [address] (CLIA# [id number]). Diagnostician: Laney Krueger MD Pathologist Electronically Signed 10/01/2021 Copies: ~ PATIENT NAME: NANI LOAIZA PATHOLOGY DATE OF : [birth year] REPORT #: [id number] PHYSICIAN: CARLOS PATHOLOGY PCP: JULIANNE MARTINEZ MD REPORT IS CONFIDENTIAL AND NOT TO BE RELEASED WITHOUT AUTHORIZATION
== END 2021-09-30 14:50 | disposition home or self-care (01) ==
LOC: DS 06:00
PROVIDERS: ATTEND Obstetrics & Gynecology
PROC: 0U514ZZ Destruction of Left Ovary, Percutaneous Endoscopic Approach (ICD-10-PCS; principal; 2021-09-30 07:00)
DX: N80.3 Endometriosis of pelvic peritoneum (principal); N83.12 Corpus luteum cyst of left ovary; N83.8 Other noninflammatory disorders of ovary, fallopian tube and broad ligament; K21.9 Gastro-esophageal reflux disease without esophagitis; E66.9 Obesity, unspecified; N94.5 Secondary dysmenorrhea; Z68.30 Body mass index [BMI] 30.0-30.9, adult
CPT/HCPCS: A9270; J0131; J1100; J1644; J1885; J2001; J2250; J2405; J2704; J2765; J7121